=== PATIENT | male | born 1970 | race Caucasian/White ===

== ENCOUNTER 2018-01-12 21:50 | Emergency (ER) | payer SELFPAY ==
[2018-01-12] MEDS ORDERED: Ondansetron 8 MG Tab.DIS PO ONE (22:13)
[2018-01-12] MEDS ORDERED: Alum Hydroxide/Mag Hydroxide 15 ML, Lidocaine 2% 15 ML PO ONE ×2 (22:14)
--- NOTE | 2018-01-12 22:23 | EDM.PDOC ---
ED HPI GENERAL MEDICAL PROBLEM - General Stated Complaint: STOMACH PAIN Time Seen by Provider: 01/12/18 21:50 Source of Information: Reports: Patient History Limitations: Reports: No Limitations - History of Present Illness INITIAL COMMENTS - FREE TEXT/NARRATIVE: 47 y.o.w.m form [place], with a H/O HTN came to the ed deu to epigatsric pain after eating spicy food. Pt lives in his truck, looking for a job in the area. No trauma. Pt did not take his meds today. No N/V/D no dizziness. No Other acute med issues. BP 170/99 pulse 75 RR 16 Pulse ox 99% on RA. Temp 36.9 Onset Date: 01/10/18 Onset Time: 08:00 Duration: Day(s):, Intermittent Location: Reports: Abdomen (epigastric) Quality: Reports: Ache, Burning, Dull Severity: Mild Improves with: Reports: Medication, Rest Worsens with: Reports: Eating, Movement Context: Reports: Other (obesity) Abdominal Pain Score (Numeric/FACES): 6 - Related Data Allergies Allergy/AdvReac Type Severity Reaction Status Date / Time No Known Allergies Allergy Verified 01/12/18 22:14 Home Meds: Home Meds Atenolol 25 mg PO DAILY 01/12/18 [History] ED ROS GENERAL - Review of Systems Review Of Systems: See Below Constitutional: Reports: No Symptoms HEENT: Reports: No Symptoms Respiratory: Reports: No Symptoms Cardiovascular: Reports: No Symptoms Endocrine: Reports: No Symptoms GI/Abdominal: Reports: Abdominal Pain (epigastric) : Reports: No Symptoms Musculoskeletal: Reports: No Symptoms Skin: Reports: No Symptoms Neurological: Reports: No Symptoms Psychiatric: Reports: No Symptoms Hematologic/Lymphatic: Reports: No Symptoms Immunologic: Reports: No Symptoms ED EXAM, GI/ABD - Physical Exam Exam: See Below Exam Limited By: No Limitations General Appearance: Alert, WD/WN, Mild Distress, Obese Eyes: Bilateral: Normal Appearance Ears: Normal External Exam Nose: Normal Inspection, Normal Mucosa Throat/Mouth: Normal Inspection, Normal Lips, Normal Gums, Normal Voice, No Airway Compromise Head: Atraumatic, Normocephalic Neck: Normal Inspection, Supple, Non-Tender, Full Range of Motion Respiratory/Chest: No Respiratory Distress, Lungs Clear, Normal Breath Sounds, No Accessory Muscle Use, Chest Non-Tender Cardiovascular: Normal Peripheral Pulses, Regular Rate, Rhythm, No Edema, No Gallop, No JVD, No Murmur, No Rub GI/Abdominal Exam: Tender (epigastric area) (Male) Exam: Deferred Rectal (Males) Exam: Deferred Back Exam: Normal Inspection, Full Range of Motion Extremities: Normal Inspection, Normal Range of Motion, Non-Tender, No Pedal Edema, Normal Capillary Refill Neurological: Alert, Oriented, CN II-XII Intact, Normal Cognition, Normal Gait, Normal Reflexes, No Motor/Sensory Deficits Psychiatric: Normal Affect, Normal Mood Skin Exam: Warm, Dry, Intact, Normal Color, No Rash Lymphatic: No Adenopathy Course - Vital Signs Text/Narrative:: 47 y.o.w.m form [place], with a H/O HTN came to the ed deu to epigatsric pain after eating spicy food. Pt lives in his truck, looking for a job in the area. No trauma. Pt did not take his meds today. No N/V/D no dizziness. No Other acute med issues. BP 170/99 pulse 75 RR 16 Pulse ox 99% on RA. Temp 36.9 PE: Morbid obese w m with epigastric pain Labs: Not indicated Impression: Gastritis, morbid obesity (DDx GBD) Tx: Zofran, GI cocktail Reexam: Improved, pain subsided "a lot". Plan: D/C with intructions Last Recorded V/S: Last Vital Signs Temp 36.7 C 01/12/18 23:10 Pulse 65 01/12/18 23:10 Resp 19 01/12/18 23:10 BP 166/98 H 01/12/18 23:10 Pulse Ox 97 01/12/18 23:10 - Orders/Labs/Meds Meds: Medications Discontinued Medications Generic Name Dose Route Start Last Admin Trade Name Freq PRN Reason Stop Dose Admin Al Hydroxide/Mg Hydroxide 15 0 ml 01/12/18 22:14 01/12/18 22:41 ml/ Lidocaine HCl 15 ml PO 01/12/18 22:15 15 ml ONETIME ONE Administration Ondansetron HCl 8 mg 01/12/18 22:13 01/12/18 22:22 Zofran Odt PO 01/12/18 22:14 8 mg ONETIME ONE Administration Departure - Departure Time of Disposition: 23:02 Disposition: Home, Self-Care 01 Condition: Good Clinical Impression: Gastritis Qualifiers: Gastritis type: superficial Chronicity: unspecified Gastritis bleeding: without bleeding Qualified Code(s): K29.30 - Chronic superficial gastritis without bleeding - Discharge Information *PRESCRIPTION DRUG MONITORING PROGRAM REVIEWED*: Yes *COPY OF PRESCRIPTION DRUG MONITORING REPORT IN PATIENT [facility]: Yes Instructions: Gastritis, Adult, [id number] Referrals: PCP,None [Primary Care Provider] - Forms: ED Department Discharge Additional Instructions: Please take Zofran for nausea as needed, please take Maalox for your stomach pain every evening 3 hours after the last meal. Please f/u, come back if your symptoms get worse acutely
[2018-01-12] MEDS ORDERED: Ondansetron 4 MG Tab.DIS PO ONE (23:06)
== END 2018-01-12 23:11 | disposition home or self-care (01) ==
LOC: FB.ED 21:50
DX: K29.30 Chronic superficial gastritis without bleeding (principal); E66.01 Morbid (severe) obesity due to excess calories
CPT/HCPCS: 99283; A9270